=== PATIENT | male | born 1950 | race Caucasian/White ===

== ENCOUNTER 2016-12-31 10:16 | Outpatient (CLI) | payer OTHER ==
[2016-12-31 10:42] LABS: BASOPHILS % 0.3 (0.0-1.5); EOSINOPHILS % 1.2 % (0.0-6.8); LYMPHOCYTES # 1.2 # k/uL (0.6-4.0); MEAN CORPUSCULAR HEMOGLOBIN 30.6 pg (28.0-34.0); MONOCYTES # 0.2 # k/uL (0.0-0.9); MONOCYTES % 3.9 % (0.0-11.0); NEUTROPHILS # 4.2 # k/uL (1.4-7.7)
[2016-12-31 11:09] LABS: eGFR (African) > 60; eGFR (Non-African) 59
== END 2016-12-31 10:17 ==
LOC: LAB 10:16
PROVIDERS: ATTEND Internal Medicine Gastroenterology
DX: Z51.81 Encounter for therapeutic drug level monitoring (principal); Z79.899 Other long term (current) drug therapy; Z94.4 Liver transplant status
CPT/HCPCS: 36415; 80053; 80197; 82977; 85025

== ENCOUNTER 2017-03-31 10:35 | Outpatient (CLI) | payer OTHER ==
[2017-03-31 11:06] LABS: BASOPHILS % 0.4 (0.0-1.5); EOSINOPHILS % 1.5 % (0.0-6.8); MEAN CORPUSCULAR HEMOGLOBIN 29.3 pg (28.0-34.0); MONOCYTES % 2.1 % (0.0-11.0); NEUTROPHILS # 5.4 # k/uL (1.4-7.7)
[2017-03-31 11:28] LABS: eGFR (African) > 60; eGFR (Non-African) > 60
== END 2017-03-31 10:36 ==
LOC: LAB 10:35
PROVIDERS: ATTEND Internal Medicine Gastroenterology
DX: K51.90 Ulcerative colitis, unspecified, without complications (principal); Z79.899 Other long term (current) drug therapy
CPT/HCPCS: 36415; 80053; 80197; 82977; 85025; 86140

== ENCOUNTER 2017-09-08 10:45 | Outpatient (CLI) | payer OTHER ==
[2017-09-08 11:07] LABS: BASOPHILS % 0.5 (0.0-1.5); MEAN CORPUSCULAR HEMOGLOBIN 28.6 pg (28.0-34.0); MEAN CORPUSCULAR VOLUME 86.8 fl (80.0-100.0); MONOCYTES % 3.5 % (0.0-11.0); NEUTROPHILS # 4.8 # k/uL (1.4-7.7)
[2017-09-08 11:34] LABS: eGFR (African) > 60; eGFR (Non-African) 59
== END 2017-09-08 10:46 ==
LOC: LAB 10:45
PROVIDERS: ATTEND Internal Medicine Gastroenterology
DX: Z94.4 Liver transplant status (principal); Z79.899 Other long term (current) drug therapy
CPT/HCPCS: 36415; 80053; 80197; 82977; 85025

== ENCOUNTER 2018-01-30 10:49 | Outpatient (CLI) | payer OTHER ==
[2018-01-30 11:54] LABS: eGFR (African) > 60; eGFR (Non-African) > 60
[2018-01-30 21:35] LABS: BASO % 0.4 % (0.0-1.5); EOS % 1.6 % (0.0-6.8); MCH. 25.8 pg (28.0-34.0); MCV 86.2 fL (80.0-100.0); MONOCYTE % 4.8 % (0.0-11.0); MONOCYTE ABS # 0.41 thou/uL (0.00-0.90); PLATELET COUNT 281 thou/uL (130-400)
== END 2018-01-30 11:22 ==
LOC: LAB 10:49
PROVIDERS: ATTEND Internal Medicine Gastroenterology
DX: Z79.899 Other long term (current) drug therapy (principal); Z94.4 Liver transplant status
CPT/HCPCS: 36415; 80053; 80197; 82977; 85025

== ENCOUNTER 2018-05-04 09:57 | Outpatient (CLI) | payer OTHER ==
[2018-05-04 10:19] LABS: BASOPHILS % 0.4 (0.0-1.5); EOSINOPHILS % 1.9 % (0.0-6.8); MEAN CORPUSCULAR HEMOGLOBIN 25.9 pg (28.0-34.0); MEAN CORPUSCULAR VOLUME 85.2 fl (80.0-100.0); MONOCYTES % 4.1 % (0.0-11.0); NEUTROPHILS # 4.1 # k/uL (1.4-7.7)
[2018-05-04 10:40] LABS: eGFR (African) > 60; eGFR (Non-African) > 60
== END 2018-05-04 10:00 ==
LOC: LAB 09:57
PROVIDERS: ATTEND Internal Medicine Gastroenterology
DX: Z94.4 Liver transplant status (principal); Z79.899 Other long term (current) drug therapy
CPT/HCPCS: 36415; 80053; 80197; 82977; 85025

== ENCOUNTER 2018-06-29 09:59 | Outpatient (CLI) | payer OTHER ==
[2018-06-29 10:30] LABS: BASOPHILS % 0.2 (0.0-1.5); MEAN CORPUSCULAR HEMOGLOBIN 27.8 pg (28.0-34.0); MEAN CORPUSCULAR VOLUME 88.9 fl (80.0-100.0); MONOCYTES % 4.7 % (0.0-11.0); NEUTROPHILS # 5.4 # k/uL (1.4-7.7)
[2018-06-29 15:51] LABS: TOTAL PROTEIN 6.4 g/dL (6.0-8.5)
== END 2018-06-29 10:00 ==
LOC: LAB 09:59
PROVIDERS: ATTEND Internal Medicine Gastroenterology
DX: Z94.4 Liver transplant status (principal); Z79.899 Other long term (current) drug therapy
CPT/HCPCS: 36415; 80053; 80197; 82977; 85025; 87497

== ENCOUNTER 2018-07-21 14:25 | Outpatient (CLI) | payer OTHER ==
[2018-07-21 15:44] LABS: BASOPHILS % 0.8 (0.0-1.5); EOSINOPHILS % 3.4 % (0.0-6.8); NEUTROPHILS # 3.1 # k/uL (1.4-7.7)
[2018-07-21 15:51] LABS: eGFR (African) 60; eGFR (Non-African) 49
== END 2018-07-21 14:26 ==
LOC: LAB 14:25
PROVIDERS: ATTEND Internal Medicine Gastroenterology
DX: Z79.899 Other long term (current) drug therapy (principal); Z94.4 Liver transplant status
CPT/HCPCS: 36415; 80053; 80197; 82977; 85025; 86140

== ENCOUNTER 2018-09-30 09:47 | Outpatient (CLI) | payer OTHER ==
[2018-09-30 10:14] LABS: MEAN CORPUSCULAR HEMOGLOBIN 27.2 pg (28.0-34.0); MONOCYTES % 4.5 % (0.0-11.0)
[2018-09-30 10:15] LABS: BASOPHILS % 0.4 (0.0-1.5); EOSINOPHILS % 1.4 % (0.0-6.8); NEUTROPHILS # 5.9 # k/uL (1.4-7.7)
[2018-09-30 10:28] LABS: eGFR (Non-African) > 60
== END 2018-09-30 09:50 ==
LOC: LAB 09:47
PROVIDERS: ATTEND Internal Medicine Gastroenterology
DX: Z94.4 Liver transplant status (principal); Z79.899 Other long term (current) drug therapy
CPT/HCPCS: 36415; 80053; 80197; 82977; 85025

== ENCOUNTER 2018-12-17 10:29 | Outpatient (CLI) | payer OTHER ==
[2018-12-17 10:57] LABS: MEAN CORPUSCULAR HEMOGLOBIN 24.2 pg (28.0-34.0)
[2018-12-17 10:58] LABS: BASOPHILS % 0.5 (0.0-1.5); MONOCYTES % 4.4 % (0.0-11.0); NEUTROPHILS # 8.2 # k/uL (1.4-7.7)
[2018-12-17 11:16] LABS: eGFR (Non-African) 55
== END 2018-12-17 10:32 ==
LOC: LAB 10:29
PROVIDERS: ATTEND Internal Medicine Gastroenterology
DX: Z94.4 Liver transplant status (principal); K51.90 Ulcerative colitis, unspecified, without complications; D50.9 Iron deficiency anemia, unspecified; Z79.899 Other long term (current) drug therapy
CPT/HCPCS: 36415; 80053; 80197; 82977; 85025; 86140

== ENCOUNTER 2019-01-07 09:46 | Outpatient (CLI) | payer OTHER ==
[2019-01-07 10:02] LABS: BASOPHILS % 0.5 (0.0-1.5); EOSINOPHILS % 1.6 % (0.0-6.8); MEAN CORPUSCULAR HEMOGLOBIN 25.1 pg (28.0-34.0); MONOCYTES % 3.6 % (0.0-11.0); NEUTROPHILS # 7.7 # k/uL (1.4-7.7)
[2019-01-07 10:31] LABS: eGFR (Non-African) > 60
== END 2019-01-07 09:48 ==
LOC: LAB 09:46
PROVIDERS: ATTEND Internal Medicine Gastroenterology
DX: Z94.4 Liver transplant status (principal); Z79.899 Other long term (current) drug therapy
CPT/HCPCS: 36415; 80053; 80197; 82977; 85025

== ENCOUNTER 2019-02-05 09:46 | Outpatient (CLI) | payer OTHER ==
[2019-02-05 10:37] LABS: BASOPHILS % 0.7 (0.0-1.5); EOSINOPHILS % 1.5 % (0.0-6.8); MEAN CORPUSCULAR HEMOGLOBIN 24.8 pg (28.0-34.0); NEUTROPHILS # 8.7 # k/uL (1.4-7.7)
[2019-02-05 10:40] LABS: eGFR (Non-African) > 60
== END 2019-02-05 09:48 ==
LOC: LAB 09:46
PROVIDERS: ATTEND Internal Medicine Gastroenterology
DX: Z94.4 Liver transplant status (principal); Z79.899 Other long term (current) drug therapy
CPT/HCPCS: 36415; 80053; 80197; 82977; 85025

== ENCOUNTER 2019-08-18 09:48 | Outpatient (CLI) | payer OTHER ==
[2019-08-18 10:12] LABS: BASOPHILS % 0.5 % (0.0-1.5); NEUTROPHILS # 6.9 # k/uL (1.4-7.7)
[2019-08-18 10:23] LABS: eGFR (Non-African) > 60
== END 2019-08-18 09:50 ==
LOC: LAB 09:48
PROVIDERS: ATTEND Internal Medicine Gastroenterology
DX: Z51.81 Encounter for therapeutic drug level monitoring (principal); Z79.4 Long term (current) use of insulin; Z79.899 Other long term (current) drug therapy
CPT/HCPCS: 36415; 80053; 80197; 82977; 85025

== ENCOUNTER 2019-10-08 09:41 | Outpatient (CLI) | payer OTHER ==
[2019-10-08 10:04] LABS: BASOPHILS % 0.5 % (0.0-1.5)
[2019-10-08 10:31] LABS: eGFR (Non-African) > 60
== END 2019-10-08 09:46 ==
LOC: LAB 09:41
PROVIDERS: ATTEND Internal Medicine Gastroenterology
DX: Z51.81 Encounter for therapeutic drug level monitoring (principal); Z79.899 Other long term (current) drug therapy; Z79.4 Long term (current) use of insulin
CPT/HCPCS: 36415; 80053; 80197; 82977; 85025